=== PATIENT | male | born 1995 ===

== ENCOUNTER 2018-08-29 09:57 | Emergency (ER) | payer SELFPAY ==
[~2018-08-29] VITALS: Ht 177.8 cm; Wt 79.5 kg
[2018-08-29 10:09] VITALS: BP 127/89
[2018-08-29] MEDS ORDERED: LIDOCAINE 1%-EPI 1:100K, 20ML ONE (10:21)
[2018-08-29] MEDS ORDERED: BACITRACIN ZINC OINT 500U/GM, 0.9 GM ONE (11:48)
== END 2018-08-29 11:58 | disposition home or self-care (01) ==
LOC: ED 11:52
DX: S01.01XA Laceration without foreign body of scalp, initial encounter (principal); S01.112A Laceration without foreign body of left eyelid and periocular area, initial encounter; Y04.2XXA Assault by strike against or bumped into by another person, initial encounter; Y93.89 Activity, other specified; Y92.410 Unspecified street and highway as the place of occurrence of the external cause; Y99.8 Other external cause status
CPT/HCPCS: 12001; 12011; 99284